=== PATIENT | female | born 1995 | race Two or more races ===

== ENCOUNTER 2020-02-16 21:19 | Emergency (ER) | payer OTHER ==
[~2020-02-16] VITALS: Ht 157.5 cm; Wt 77.1 kg
[~2020-02-16 21:19] MED LIST: MACROBID 100 M100 MG PO; PRENATABS RX TA1 TAB PO
== END 2020-02-16 21:52 | disposition home or self-care (01) ==
LOC: ER 21:19
DX: M94.0 Chondrocostal junction syndrome [Tietze] (principal)

== ENCOUNTER 2020-07-10 08:06 | Outpatient (CLI) | payer OTHER | END 2020-07-10 11:43 | disposition home or self-care (01) | LOC: OBS/DEL 08:06 | PROVIDERS: ATTEND Obstetrics & Gynecology | DX: O60.03 Preterm labor without delivery, third trimester (principal) ==

== ENCOUNTER 2020-08-14 05:50 | Inpatient (IN) | payer OTHER ==
[~2020-08-14] VITALS: Ht 157.5 cm; Wt 84.4 kg
[2020-08-15] MEDS ORDERED: SYNTHROID100 MCG PO (08:34)
[2020-08-16] MEDS ORDERED: EC-NAPROSYN500 MG PO (08:59)
== END 2020-08-16 13:26 | DRG 807 ==
LOC: LDR 05:50 → SURG-SUITE 05:50
PROVIDERS: ADMIT Obstetrics & Gynecology; ATTEND Obstetrics & Gynecology
PROC: 10E0XZZ Delivery of Products of Conception, External Approach (ICD-10-PCS; principal; 2020-08-14)
PROC: 0KQM0ZZ Repair Perineum Muscle, Open Approach (ICD-10-PCS; 2020-08-14)
PROC: 4A0HXFZ Measurement of Products of Conception, Cardiac Rhythm, External Approach (ICD-10-PCS; 2020-08-14)
DX: O70.1 Second degree perineal laceration during delivery (principal); Z37.0 Single live birth; O99.824 Streptococcus B carrier state complicating childbirth; Z3A.38 38 weeks gestation of pregnancy